=== PATIENT | male | born 1980 | race Caucasian/White ===

== ENCOUNTER 2025-04-13 12:40 | Outpatient (CLI) | payer BC, SELFPAY ==
--- NOTE | ~2025-04-13 | XR_ITS ---
XR cervical spine min 6V Indication: LT SIDED NECK PAIN RADIATING INTO LT SHOULDER Comparison: None Findings: No fracture identified, no subluxation with flexion-extension. The disc heights are intact. Soft tissues unremarkable Impression: No acute abnormality. Reviewed, dictated and finalized at location P. ILE TECHNICIAN Impression: No acute abnormality.
== END 2025-04-13 12:41 | disposition home or self-care (01) ==
LOC: MICIMG 12:47
PROVIDERS: PCP Chiropractor; Visit Provider Chiropractor
DX: M54.2 Cervicalgia (principal); M25.512 Pain in left shoulder
CPT/HCPCS: 72052